=== PATIENT | male | born 1940 | race Caucasian/White ===

== ENCOUNTER → 2016-08-23 | Outpatient (CLI) | payer MEDICARE ==
[2016-08-23 08:00] LABS: BUN/CREATININE RATIO 23 (0-10)
== END ==
LOC: LAB 06:09
PROVIDERS: Family Medicine
DX: E11.65 Type 2 diabetes mellitus with hyperglycemia (principal); E78.5 Hyperlipidemia, unspecified
CPT/HCPCS: 36415; 80053; 80061; 82043; 82570; 83036

== ENCOUNTER → 2016-11-25 | Outpatient (CLI) | payer MEDICARE ==
[2016-11-25 06:46] LABS: BUN/CREATININE RATIO 20 (0-10)
== END ==
LOC: LAB 06:00
PROVIDERS: Family Medicine
DX: E11.9 Type 2 diabetes mellitus without complications (principal); E78.2 Mixed hyperlipidemia
CPT/HCPCS: 36415; 80053; 80061; 83036

== ENCOUNTER → 2017-02-27 | Outpatient (CLI) | payer MEDICARE ==
[2017-02-27 08:01] LABS: BUN/CREATININE RATIO 25 (0-10)
== END ==
LOC: LAB 05:55
PROVIDERS: Family Medicine
DX: Z12.5 Encounter for screening for malignant neoplasm of prostate (principal); E78.2 Mixed hyperlipidemia; E11.65 Type 2 diabetes mellitus with hyperglycemia
CPT/HCPCS: 36415; 80053; 80061; 83036; G0103

== ENCOUNTER 2020-07-04 05:09 | Emergency (ER) | payer MEDICARE ==
[~2020-07-04 05:09] MED LIST: COZAAR100 MG PO; EC-NAPROSYN500 MG PO; GARLIC1 EAC1 PO; GLIPIZIDE5 MG PO; LEVAQUIN500 MG PO; LOPRESSOR50 MG PO; TESSALON PERLE100 MG PO; TOUJEO SOLOSTAR 300 SQ; TRADJENTA5 MG PO; TYLENOL W/CODEIN1 E1 PO; ZOCOR20 MG PO
[2020-07-04 06:38] LABS: HEMOGLOBIN 14.9 gm/dl (14.0-17.5); RED BLOOD COUNT 5.33 M/UL (4.20-5.50); WHITE BLOOD COUNT 6.3 K/UL (4.5-11.0)
[2020-07-04 07:18] LABS: BUN/CREATININE RATIO 19 (0-10)
== END 2020-07-04 11:05 | disposition home or self-care (01) ==
LOC: ER1 05:09
PROVIDERS: Emergency Medicine
DX: S83.91XA Sprain of unspecified site of right knee, initial encounter (principal); E11.9 Type 2 diabetes mellitus without complications; X50.9XXA Other and unspecified overexertion or strenuous movements or postures, initial encounter; Y92.89 Other specified places as the place of occurrence of the external cause
CPT/HCPCS: 73562; 80053; 82550; 82553; 84484; 85025; 85379; 85730; 93971; 99284

== ENCOUNTER → 2020-08-03 | Outpatient (CLI) | payer MEDICARE | LOC: SLEEP 15:33 | DX: G47.33 Obstructive sleep apnea (adult) (pediatric) (principal); R91.8 Other nonspecific abnormal finding of lung field; J30.9 Allergic rhinitis, unspecified; I11.0 Hypertensive heart disease with heart failure; I50.42 Chronic combined systolic (congestive) and diastolic (congestive) heart failure; I25.10 Atherosclerotic heart disease of native coronary artery without angina pectoris; I42.0 Dilated cardiomyopathy; E11.9 Type 2 diabetes mellitus without complications; I45.4 Nonspecific intraventricular block; I49.3 Ventricular premature depolarization; I27.20 Pulmonary hypertension, unspecified; K21.9 Gastro-esophageal reflux disease without esophagitis; E78.5 Hyperlipidemia, unspecified; N20.0 Calculus of kidney; R80.9 Proteinuria, unspecified; E78.2 Mixed hyperlipidemia; I47.2 Ventricular tachycardia; I25.2 Old myocardial infarction; R09.89 Other specified symptoms and signs involving the circulatory and respiratory systems; Z79.4 Long term (current) use of insulin | CPT/HCPCS: 95811 ==

== ENCOUNTER → 2020-09-07 | Outpatient (CLI) | payer MEDICARE ==
[2020-09-07 06:54] LABS: HEMOGLOBIN 13.6 gm/dl (14.0-17.5); RED BLOOD COUNT 5.05 M/UL (4.20-5.50); WHITE BLOOD COUNT 6.7 K/UL (4.5-11.0)
[2020-09-07 07:03] LABS: BUN/CREATININE RATIO 19 (0-10)
[2020-09-08 10:15] LABS: CREATININE, URINE 170.2 mg/dL (Not Estab.)
== END ==
LOC: LAB 06:19
PROVIDERS: Family Medicine
DX: Z12.5 Encounter for screening for malignant neoplasm of prostate (principal); E78.2 Mixed hyperlipidemia; E11.9 Type 2 diabetes mellitus without complications; I10 Essential (primary) hypertension; Z79.899 Other long term (current) drug therapy; Z79.4 Long term (current) use of insulin
CPT/HCPCS: 36415; 80053; 80061; 82043; 82570; 82607; 83735; 85027; G0103

== ENCOUNTER 2021-01-12 09:59 | Emergency (ER) | payer MEDICARE ==
[~2021-01-12] VITALS: Ht 177.8 cm; Wt 106.6 kg
== END 2021-01-12 14:32 | disposition home or self-care (01) ==
LOC: ER1 09:59
DX: Z23 Encounter for immunization (principal); U07.1 COVID-19; E11.9 Type 2 diabetes mellitus without complications; E78.5 Hyperlipidemia, unspecified; I10 Essential (primary) hypertension
CPT/HCPCS: 71045; 99283; M0243; U0002

== ENCOUNTER 2021-01-17 07:34 | Emergency (ER) | payer MEDICARE ==
[2021-01-17] MEDS ORDERED: TESSALON PERLE100 MG PO (09:30)
[2021-01-17] MEDS ORDERED: ALBUTEROL1.25 MG/3 INH (09:49)
== END 2021-01-17 08:50 | disposition home or self-care (01) ==
LOC: ER1 07:34
DX: U07.1 COVID-19 (principal); I11.9 Hypertensive heart disease without heart failure; E11.9 Type 2 diabetes mellitus without complications; I25.2 Old myocardial infarction
CPT/HCPCS: 71045; 99283

== ENCOUNTER → 2021-02-09 | Outpatient (CLI) | payer MEDICARE ==
[~2021-02-09] MED LIST changes: +ALBUTEROL1.25 MG/3 INH
[2021-02-09 07:10] LABS: HEMOGLOBIN 13.3 gm/dl (14.0-17.5); RED BLOOD COUNT 4.73 M/UL (4.20-5.50); WHITE BLOOD COUNT 5.6 K/UL (4.5-11.0)
[2021-02-09 07:27] LABS: BUN/CREATININE RATIO 18 (0-10)
== END ==
LOC: LAB 06:08
PROVIDERS: Family Medicine
DX: E78.2 Mixed hyperlipidemia (principal); I11.0 Hypertensive heart disease with heart failure; I50.22 Chronic systolic (congestive) heart failure
CPT/HCPCS: 36415; 80053; 80061; 84443; 85027

== ENCOUNTER → 2021-06-11 | Outpatient (CLI) | payer MEDICARE ==
[2021-06-11 08:23] LABS: HEMOGLOBIN 13.5 gm/dl (14.0-17.5); RED BLOOD COUNT 4.79 M/UL (4.20-5.50); WHITE BLOOD COUNT 6.1 K/UL (4.5-11.0)
[2021-06-11 08:47] LABS: BUN/CREATININE RATIO 17 (0-10)
[2021-06-12 04:10] LABS: CREATININE, URINE 205.5 mg/dL (Not Estab.)
== END ==
LOC: LAB 07:35
PROVIDERS: Family Medicine
DX: E11.9 Type 2 diabetes mellitus without complications (principal); E78.2 Mixed hyperlipidemia; I50.22 Chronic systolic (congestive) heart failure; Z79.899 Other long term (current) drug therapy
CPT/HCPCS: 36415; 80053; 80061; 82043; 82570; 82607; 83735; 85027

== ENCOUNTER 2021-08-18 20:14 | Emergency (ER) | payer MEDICARE | END 2021-08-18 22:53 | disposition home or self-care (01) | LOC: ER1 20:14 | DX: K22.4 Dyskinesia of esophagus (principal); E10.9 Type 1 diabetes mellitus without complications; I11.9 Hypertensive heart disease without heart failure; Z95.0 Presence of cardiac pacemaker | CPT/HCPCS: 96374; 96376; 99283; J1610 ==

== ENCOUNTER → 2021-10-27 | Outpatient (CLI) | payer MEDICARE ==
[2021-10-27 07:03] LABS: HEMOGLOBIN 12.7 gm/dl (14.0-17.5); RED BLOOD COUNT 4.35 M/UL (4.20-5.50); WHITE BLOOD COUNT 7.5 K/UL (4.5-11.0)
== END ==
LOC: LAB 06:18
PROVIDERS: Family Medicine
DX: E11.9 Type 2 diabetes mellitus without complications (principal); I10 Essential (primary) hypertension; E78.2 Mixed hyperlipidemia; Z79.899 Other long term (current) drug therapy
CPT/HCPCS: 36415; 80053; 80061; 82607; 83036; 83735; 85027

== ENCOUNTER → 2021-11-03 | Outpatient (CLI) | payer MEDICARE ==
[2021-11-03 07:42] LABS: HEMOGLOBIN 12.6 gm/dl (14.0-17.5); RED BLOOD COUNT 4.3 M/UL (4.20-5.50); WHITE BLOOD COUNT 6.5 K/UL (4.5-11.0)
== END ==
LOC: LAB 06:41
PROVIDERS: Family Medicine
DX: R53.83 Other fatigue (principal); I10 Essential (primary) hypertension; D64.9 Anemia, unspecified; R94.4 Abnormal results of kidney function studies
CPT/HCPCS: 36415; 80048; 82728; 83540; 83550; 84443; 85025; 85045

== ENCOUNTER → 2021-12-24 | Outpatient (CLI) | payer MEDICARE | LOC: MAMO 11-25 14:00 | DX: N64.4 Mastodynia (principal) | CPT/HCPCS: 77065 ==

== ENCOUNTER → 2022-02-10 | Outpatient (CLI) | payer MEDICARE ==
[2022-02-10 07:05] LABS: BUN/CREATININE RATIO 28 (0-10)
== END ==
LOC: LAB 06:06
PROVIDERS: Internal Medicine Cardiovascular Disease
DX: I25.10 Atherosclerotic heart disease of native coronary artery without angina pectoris (principal); I11.0 Hypertensive heart disease with heart failure; I50.22 Chronic systolic (congestive) heart failure; R53.83 Other fatigue; I34.0 Nonrheumatic mitral (valve) insufficiency
CPT/HCPCS: 36415; 80048; 80061; 80076; 83880; 84439; 84443; 84481